=== PATIENT | female | born 1945 | race Caucasian/White ===

== ENCOUNTER 2023-06-09 11:03 | Emergency (ER) | payer BC, MEDICARE, SELFPAY ==
--- NOTE | ~2023-06-09 | XR_ITS ---
EXAMINATION: XR tibia fibula RT 2V INDICATION: Right leg pain TECHNIQUE: Two views of the right tibia and fibula are obtained on four radiographs COMPARISON: None available FINDINGS: Bone alignment is normal. There is no fracture. Calcified atherosclerosis is noted. There i s soft tissue swelling of the lower limb. A plantar calcaneal enthesophyte is noted. IMPRESSION: 1. No acute osseous abnormality. Reviewed, dictated and finalized at location F. COORDINATION MANAGER
[2023-06-09 11:00] VITALS: PULSE 60; RESP 20; TEMP 36.8; O2SAT 98
--- NOTE | 2023-06-09 11:07 | ECG_ITS ---
Measurements Intervals [place] Rate: 60 P: 263 AK: 244 QRS: 59 QRSD: 145 T: 27 QT: 485 QTc: 485 Interpretive Statements ELECTRONIC ATRIAL PACEMAKER LEFT BUNDLE BRANCH BLOCK BASELINE ARTIFACT- I, III, AVL ABNORMAL ECG NO PREVIOUS ECG AVAILABLE FOR COMPARISON Electronically Signed On 06-09-2023 15:38:34 FAMILY SUPPORT WORKER by Sandeep Arora D.O.
[2023-06-09 11:13] VITALS: PULSE 60; RESP 17; O2SAT 99
[2023-06-09 11:15] VITALS: BP 136/70; PULSE 60; RESP 14; O2SAT 99
[2023-06-09 11:16] VITALS: PULSE 60; RESP 13; O2SAT 99
[2023-06-09 12:11] LABS: Basophils Absolute Auto 0.1 K/mm3 (0.0-0.1); Basophils Percent Auto 0.4 % (0.2-1.2); Eosinophils Absolute Auto 0.1 K/mm3 (0-0.3); Eosinophils Percent Auto 0.6 % (0-4.4); Hematocrit 34.8 % (37.0-47.0); Hemoglobin 11.2 g/dL (12.0-15.0); Immature Granulocyte Absolute 0.09 K/mm3 (0.00-0.031); Immature Granulocyte Percent A 0.6 % (0-0.5); Lymphocytes Absolute Auto 1.82 K/mm3 (0.9-3.2); Lymphocytes Percent Auto 11.3 % (18.3-44.2); Mean Corpuscular HGB Conc 32.2 g/dl (32-36); Mean Corpuscular Hemoglobin 32.4 pg (26-34); Mean Corpuscular Volume 100.6 fl (80-100); Mean Platelet Volume 10.1 fl (7.4-10.4); Monocytes Percent Auto 12.2 % (2.6-8.5); Neutrophils Absolute Auto 12.1 K/mm3 (1.3-6.7); Neutrophils Percent Auto 74.9 % (45.5-73.1); Platelet Count Result 252 k/mm3 (150-375); Red Blood Count 3.46 M/mm3 (4.2-5.4); Red Cell Distribution Width 13.5 % (11.5-14.5); White Blood Count 16.1 K/mm3 (4.5-10.0)
[2023-06-09 12:20] LABS: Alanine Aminotransferase 18 U/L (6-35); Alkaline Phosphatase 71 U/L (38-126); Anion Gap 8 mmol/L (8-16); Aspartate Amino Transferase 31 U/L (14-36); Bilirubin,Total 0.8 mg/dL (0.2-1.3); Blood Urea Nitrogen 30 mg/dL (7-17); Calcium 9.9 mg/dL (8.4-10.2); Carbon Dioxide 28 mmol/L (22-30); Chloride 93 mmol/L (98-107); Estimated CRCL calculation 31 ml/min; Estimated Glomerular Filt Rate 40; Glucose 105 mg/dL (65-110); Potassium 4.4 mmol/L (3.4-5.0); Sodium 129 mmol/L (137-145)
[2023-06-09 12:21] LABS: Prothrombin Time 33.8 Seconds (11.1-14.7)
[2023-06-09 12:22] LABS: Partial Thromboplastin Time 71.7 SECONDS (22.3-36.8)
--- NOTE | 2023-06-09 12:59 | ED.FALL ---
HPI - Fall General Chief Complaint: Fall Stated Complaint: fall Time Seen by Provider: 06/09/23 11:04 History of Present Illness HPI Narrative: 77-year-old female presented to the emergency department for evaluation right leg pain. Patient state she was walking at night and her right foot fell into a hole. the patient did injure her right lower leg and did develop a hematoma at her right hip. Patient does take Coumadin Related Data Allergies Allergy/AdvReac Type Severity Reaction Status Date / Time Contrast Media Allergy Unknown Unknown Uncoded 06/09/23 11:06 Review of Systems Review of Systems: All systems reviewed & are unremarkable except as noted in HPI and below Exam Narrative: APPEARANCE: Well appearing, no pain, no distress, well-nourished. HEAD: normocephalic, atraumatic. EYES: PERRLA/EOMI, conjunctivae clear. NOSE: Normal no drainage EARS:TMS clear with good light reflex. THROAT: Pharynx clear, no exudate. NECK: Supple. No adenopathy, no masses. RESPIRATORY: Airway patent, respirations nonlabored. Clear to auscultation bilaterally, no rales, rhonchi, wheezing. CARDIOVASCULAR: Regular rate and rhythm without murmurs rubs or gallops. ABDOMINAL: Soft, nontender, nondistended, normal bowel sounds MUSCULOSKELETAL: right thigh hematoma. Ecchymosis to right lower leg and healing laceration. NEURO: Alert. Cranial nerves II through XII intact. grossly intact SKIN: laceration to right perez Course Course Emergency Course: 77-year-old female presents emerged department for evaluation a hematoma to her right hip and to injury to her right tib-fib. The laceration was cold and was allowed to heal by secondary intention. Patient Steri-Strips were replaced. Patient was started on antibiotics for possible underlying cellulitis. X-rays were negative for acute fracture dislocation. Patient and family were updated on results of workup. Patient was comfortable with plan for discharge and close follow-up. Patient was educated on reasons to return to the emergency department. All questions and concerns were addressed. Vital Signs Vital signs: Vital Signs Temperature 98.3 F 06/09/23 11:00 Pulse Rate 60 06/09/23 11:00 Respiratory Rate 20 06/09/23 11:00 Pulse Oximetry 98 06/09/23 11:00 Oxygen Delivery Room Air 06/09/23 11:00 Temperature 98.3 F 11/24/23 11:00 Pulse Rate 69 06/09/23 14:11 Respiratory Rate 20 06/09/23 14:11 Blood Pressure 140/69 06/09/23 14:11 Pulse Oximetry 99 06/09/23 14:11 Oxygen Delivery Room Air 06/09/23 11:00 - Fall Lab Data 06/09/23 12:04 06/09/23 12:04 Labs: Lab Results 06/09/23 Range/Units 12:04 WBC 16.1 H (4.5-10.0) K/mm3 RBC 3.46 L (4.2-5.4) M/mm3 Hgb 11.2 L (12.0-15.0) g/dL Hct 34.8 L (37.0-47.0) % MCV 100.6 H (80-100) fl MCH 32.4 (26-34) pg MCHC 32.2 (32-36) g/dl RDW 13.5 (11.5-14.5) % Plt Count 252 (150-375) k/mm3 MPV 10.1 (7.4-10.4) fl Immature Gran % (Auto) 0.6 H (0-0.5) % Neut % (Auto) 74.9 H (45.5-73.1) % Lymph % (Auto) 11.3 L (18.3-44.2) % Hendry % (Auto) 12.2 H (2.6-8.5) % Eos % (Auto) 0.6 (0-4.4) % Baso % (Auto) 0.4 (0.2-1.2) % Lymph # (Auto) 1.82 (0.9-3.2) K/mm3 Hendry # (Auto) 2.0 H (0.1-0.6) K/mm3 Eos # (Auto) 0.1 (0-0.3) K/mm3 Baso # (Auto) 0.1 (0.0-0.1) K/mm3 Abs Immat Gran (auto) 0.09 H (0.00-0.031) K/mm3 Absolute Neuts (auto) 12.1 H (1.3-6.7) K/mm3 Absolute Nucleated RBC 0.0 (0.0-0.012) K/mm3 Nucleated RBC % 0.0 (0.0-0.2) % PT 33.8 H (11.1-14.7) Seconds INR 3.0 APTT 71.7 H (22.3-36.8) SECONDS Sodium 129 L (137-145) mmol/L Potassium 4.4 (3.4-5.0) mmol/L Chloride 93 L (98-107) mmol/L Carbon Dioxide 28 (22-30) mmol/L Anion Gap 8 (8-16) mmol/L BUN 30 H (7-17) mg/dL Creatinine 1.30 H (0.7-1.0) mg/dL Estim Creat Clear Calc 31 ml/min Estimated GFR 40 L (59 - ) Glucose 105 (65-110)
[2023-06-09] MEDS: CEPHALEXIN 500 MG CAPSULE PO (13:53)
[2023-06-09 14:11] VITALS: BP 140/69; PULSE 69; RESP 20; O2SAT 99
== END 2023-06-09 14:12 | disposition home or self-care (01) ==
PROVIDERS: Emergency Provider Emergency Medicine; PCP Internal Medicine
DX: L03.115 Cellulitis of right lower limb (principal); S81.811A Laceration without foreign body, right lower leg, initial encounter; S70.01XA Contusion of right hip, initial encounter; Z79.01 Long term (current) use of anticoagulants; I44.7 Left bundle-branch block, unspecified; X50.9XXA Other and unspecified overexertion or strenuous movements or postures, initial encounter
CPT/HCPCS: 36415; 73590; 80053; 85025; 85610; 85730; 93005; 99283; A9270

== ENCOUNTER → 2023-06-28 12:55 | Outpatient (CLI) | payer BC, MEDICARE, SELFPAY ==
--- NOTE | ~2023-06-28 | US_ITS ---
EXAMINATION: US soft tissue LE RT DATE: 06/28/2023 13:18 INDICATION: Right lower limb pain and erythema and swelling and hematoma. TECHNIQUE: Multiple grayscale and Doppler ultrasound images of the right lower limb were obtained. COMPARISON: Right tibia and fibula radiographs 06/09/2023 FINDINGS: There is a hematoma in lateral right lower leg measuring 12.1 x 1.6 x 3.9 cm. IMPRESSION: 1. Hematoma in lateral right lower leg. Reviewed, dictated and finalized at location A. D CUTTER
== END ==
PROVIDERS: PCP Internal Medicine
DX: S80.11XD Contusion of right lower leg, subsequent encounter (principal)
CPT/HCPCS: 76882

== ENCOUNTER 2024-10-04 19:03 | Emergency (ER) | payer MEDICARE, SELFPAY ==
--- NOTE | ~2024-10-04 | XR_ITS ---
CHEST RADIOGRAPH CLINICAL HISTORY: cough . COMPARISON: 04/27/2016 TECHNIQUE: Single portable view of the chest. FINDINGS Sternal wires and mediastinal clips are identified, the wires are midline and primarily intact. The left mid lung is partially obscured due to pacemaker generator. Wires project over the right atrium and right ventricle. Ring projects over the mitral position The lungs are clear. IMPRESSION: No focal infiltrate or effusion. Reviewed, dictated and finalized at location A.
--- OUTSIDE RECORDS SUMMARY | 2024-10-04 19:06 | XMS_ITS | Clinical Summary ---
Author Organization [place] [id number] [facility] Address [address] [place] [address] Care Team Providers Care Head Stock Transfer Clerk Name Role Phone Deandre Tracey MD Primary Care Provider [phone] Allergies Active Allergy Reactions Criticality Noted Date Comments Iodinated Contrast Media Rash Medium 02/14/2023 Medications ezetimibe (ZETIA) 10 mg tablet Take 1 tablet (10 mg total) by mouth daily 09/12/19 21 Active furosemide (LASIX) 40 mg tablet Take 0.5 tablets (20 mg total) by mouth daily 08/24/19 21 Active rosuvastatin (CRESTOR) 10 mg tablet Take 1 tablet (10 mg total) by mouth 1 every other day 07/15/20 20 Active sotaloL (BETAPACE) 80 mg tablet Take 1 tablet (80 mg total) by mouth 2 (two) times a day 08/24/19 21 Active dilTIAZem CD 240 mg 24 hr capsule Take 1 capsule (240 mg total) by mouth daily 10/16/19 21 Active warfarin (COUMADIN) 3 mg tablet Take 1 tablet (3 mg total) by mouth 10/08/19 21 Active magnesium oxide (MAG-OX) 400 mg (241.3 mg elemental magnesium) tabletIndicati ons:hypomagnes emia Take 1 tablet (400 mg total) by mouth daily Active spironolactone (ALDACTONE) 25 mg tablet Take 0.5 tablets (12.5 mg total) by mouth daily 06/15/20 22 Active aspirin 81 mg enteric coated tablet Take 1 tablet (81 mg total) by mouth daily Active Jardiance 10 mg tablet Take 1 tablet (10 mg total) by mouth daily 01/21/20 23 Active sacubitriL-amelia sartan (ENTRESTO) 49-51 mg tabletIndicati ons:chronic heart failure Take 1 tablet by mouth 2 (two) times a day Active warfarin (COUMADIN) 2 mg tablet TAKE 1 AND 1/2 TABLETS BY MOUTH DAILY DIRECTED BY INR 03/11/20 23 Active traMADoL (ULTRAM) 50 mg tablet Take 1 tablet (50 mg total) by mouth every morning 15 tablet 06/16/20 23 Active Additional Information Patient not taking.Reported on 01/08/2024 mupirocin (BACTROBAN) 2 % ointmentIndica tions:Minor Bacterial Skin Infections Apply topically daily 22 g 11/03/19 24 Active triamcinolone (KENALOG) 0.1 % ointment Apply topically daily Apply topically to reddened area around wound on your right lower leg with daily dressing changes 30 g 1 11/16/19 24 Active acetaminophen (TYLENOL) 325 mg tablet Take 1 tablet (325 mg total) by mouth every 6 (six) hours as needed for pain Active estradioL (ESTRACE) 1 mg tablet TAKE 1 TABLET(1 MG) BY MOUTH DAILY 90 tablet 2 01/28/20 24 Active ferrous sulfate 325 mg (65 mg of elemental iron) tabletIndicati ons:Iron Deficiency Anemia Take 1 tablet (325 mg total) by mouth daily with breakfast 30 tablet 11 04/23/20 24 025 Active Additional Information Patient not taking.Reported on 07/01/2024 sodium, potassium & mag sulfates (SUPREP BOWEL KIT) 17.5-3.13-1.6 gram recon soln FOLLOW PACKAGE DIRECTIONS 06/19/20 24 Active gabapentin (NEURONTIN) 100 mg capsule TAKE 1 CAPSULE(100 MG) BY MOUTH TWICE DAILY 180 capsule 2 09/05/19 25 Active zolpidem (AMBIEN) 5 mg tablet TAKE 1 TABLET(5 MG) BY MOUTH EVERY NIGHT 30 tablet 1 09/06/[address] (PROTONIX) 40 mg EC tablet Take 1 tablet (40 mg total) by mouth daily before breakfast 08/16/19 25 Active azithromycin (ZITHROMAX) 250 mg tablet Take 2 tabs (500 mg) by mouth today, than 1 tab (250 mg) daily for 4 days. 6 tablet 10/03/19 25 025 Active doxycycline (VIBRAMYCIN) 100 mg capsule Take 1 tablet/capsule (100 mg total) by mouth 2 (two) times a day for 10 days 20 tablet/caps ule 10/03/19 25 025 Active gabapentin (NEURONTIN) 100 mg capsule Take 1 capsule (100 mg total) by mouth 2 (two) times a day 180 capsule 1 03/01/20 24 025 Discontinued zolpidem (AMBIEN) 5 mg tablet TAKE 1 TABLET(5 MG) BY MOUTH EVERY NIGHT 30 tablet 1 07/08/20 24 025 Discontinued Active Problems Problem Noted Date Diagnosed Date Iron deficiency anemia 04/23/2024 Open leg wound, right, subsequent encounter 01/2024 Assessment & Plan (09/23/2024 12:47 PM CDT): This is doing better and stable I have advised her to wear her sleeve during the day especially while she is up and moving around. Chronic left-sided thoracic back pain 02/14/2023 Assessment & Plan (09/23/2024 12:48 PM CDT): Will check CT of T-spine. Assessment & Plan (02/14/2023 9:53 AM CDT): Will obtain Xray Continue lidocaine patches Trial gabapentin 100mg BID Pacemaker 10/16/2020 Menopause 10/16/2020 Essential hypertension 10/16/2020 Assessment & Plan (11/21/2023 12:42 PM CDT): BP at target continue medication for target directed therapy Mixed hyperlipidemia 10/16/2020 Assessment & Plan (11/21/2023 12:42 PM CDT): Doing well. Primary insomnia 10/16/2020 Encounter for screening mamm ogram for malignant neoplasm of breast 09/24/2020 Assessment & Plan (09/24/2020 2:59 PM AUTOMATIC CENTRIFUGAL STATION OPERATOR): Lengthy discussion today regarding HRT and importance of regular screening (last 2019) Atrial fibrillation 04/02/2013 Assessment & Plan (11/21/2023 12:42 PM CDT): Stable at this time on anticoagulation Assessment & Plan (09/24/2020 2:58 PM AUTOMATIC CENTRIFUGAL STATION OPERATOR): Unfortunately no ECG machine available today to determine rhythm, but she is irregularly irregular, edema, no CP or SOB Will do 48 hour holter Advised to contact cardiology and make them aware of irregular rhythm and dizziness S/S to seek ER care for reviewed today Labs Mitral valve disease 09/19/2008 Cardiomyopathy 09/19/2008 Assessment & Plan (11/21/2023 12:42 PM CDT): Stable followed by Cardiology recent electrolytes done by Cardiology apparently Resolved Problems Problem Noted Date Diagnosed Date Resolved Date Herpes zoster without complication 07/12/2022 02/14/2023 Assessment & Plan (07/12/2022 2:37 PM AUTOMATIC CENTRIFUGAL STATION OPERATOR): Complete Valtrex TID OTC Lidocaine patches, on for 12 hours/off for hours Encounters Date Type Department Care Team Description 10/02/2024 Orders Only [facility] [address] [place] [address] Deandre Tracey MD 10/02/2024 Telephone [facility] [address] [place] [address] Deandre Tracey MD cough 09/23/2024 12:00 PM CDT Office Visit [facility] [address] [facility] [address] [place] [address] Deandre Tracey MD Open leg wound, right, subsequent encounter (Primary Dx); Chronic left-sided thoracic back pain 08/17/2024 Orders Only [facility] [address] [place] [address] Deandre Tracey MD 07/11/2024 [facility] [address] [facility] [address] [place] [address] Merlene Kohli MA from Last 3 Months Immunizations Immunization Administration Dates Next Due Tdap 08/11/2014 Surgical History Surgery Date Site/Laterality Comments INSERT / REPLACE / REMOVE PACEMAKER HYSTERECTOMY MITRAL VALVE REPLACEMENT Medical History Medical History Date Comments Atrial fibrillation (HCC) Sleep difficulties Hyperlipidemia Family History Medical History Relation Name Comments Cancer Father Cancer Mother Relation Name Status Comments Father Mother Social History Tobacco Use Types Packs/Day Years Used Date Smoking Tobacco: Never Tobacco Cessation:Counseling Given: Not Answered Hunger Vital Sign Answer Date Recorded Within the past 12 months, y ou worried that your food would run out before you got the money to buy more. Never true 10/31/19 24 Within the past 12 months, t he food you bought just didn't last and you didn't have money to get more. Never true 10/31/2023 Comments Unknown Sex and Gender Information Value Date Recorded Sex Assigned at Not on file Legal Sex Female 12:07 PM AUTOMATIC CENTRIFUGAL STATION OPERATOR Gender Identity Not on file Sexual Orientation Not on file Obstetrics History Last Filed Vital Signs Vital Sign Reading Time Taken Comments Blood Pressure 94/60 09/23/2024 12:04 PM CDT Pulse 60 09/23/2024 12:04 PM CDT Temperature 36.4 C (97.6 F) 01/08/2024 8:52 AM CDT Respiratory Rate 16 10/31/2023 1:09 PM CDT Oxygen Saturation 97% 03/01/2024 10:21 AM CDT Inhaled Oxygen Concentration - - Weight 69.4 kg (153 lb) 09/23/2024 12:04 PM CDT Height 157.5 cm (5' 2 ) 09/23/2024 12:04 PM CDT Body Mass Index 27.98 09/23/2024 12:04 PM CDT Plan of Treatment Health Maintenance Due Date Last Done Comments Depression Screening 1945 Fall Risk Assessment 1945 Hepatitis C Screening 1945 Hepatitis B Screening 09/26/1963 Well Visit 65+ 2010 Influenza Vaccine (#1) 2024 DTaP/Tdap/Td Vaccine (2 - Td or Tdap) 08/11/2024 08/11/2014 Osteoporosis Screening-Bone Density Scan 07/01/2025 Postponed from 09/25 (Patient declined, but will receive in the future) Pneumococcal vaccine 65+ (1 of 2 - PCV) 07/01/2025 Postponed from 09/25 (Patient declined, but will receive in the future) Zoster Vaccine (1 of 2) 07/01/2025 Post poned from 09/26/1995 (Patient declined, but will receive in the future) Breast Cancer Screening-Mammogram Discontinued 10/23/2018 Procedures Procedure Name Priority Date/Time Associated Diagnosis Comments GI - RESULT 08/17/2024 9:37 AM AUTOMATIC CENTRIFUGAL STATION OPERATOR SCREENING MAMMOGRAM BILATERAL W CLAUDE Schedule Routine, Read Routine (OP Routine) 10/23/2018 7:41 AM CDT Encounter for screening mammogram for malignant neoplasm of breast from Last 3 Months or Most Recently Relevant to Health Maintenance Results * GI - RESULT (08/17/2024 9:37 AM AUTOMATIC CENTRIFUGAL STATION OPERATOR) Anatomical Region Laterality Modality Other us Deandre Tracey MD Final Result * Screening Mammogram Bilateral W Claude (10/23/2018 7:41 AM CDT) Anatomical Region Laterality Modality Breast Bilateral Mammography Narrative 10/25/2018 8:01 AM CDT Mammogram Technique: Bilateral Digital Breast Tomosynthesis, Bilateral C-view 2D Screening mammogram. Views obtained: bilateral craniocaudal and bilateral mediolateral oblique. Computer Aided Detection was performed. Mammogram Findings: The present examination has been compared to prior imaging studies performed [facility] 10/13/2008, and at [facility] on 09/18/2008. The breasts are heterogeneously dense, which may obscure small masses. There is a new focal asymmetry measuring 10 millimeters in the anterior subareolar area of the left breast located 2 centimeters from the nipple. There is no suspicious abnormality in the right breast. Impression: New focal asymmetry in the left breast requires additional evaluation. Additional views are recommended. OVERALL FINAL ASSESSMENT: BI-RADS CATEGORY 0: Incomplete: Need additional imaging evaluation. Procedure Note Marva Morgan MD - 10/25/2018 Mammogram Technique: Bilateral Digital Breast Tomosynthesis, Bilateral C-view 2D Screening mammogram. Views obtained: bilateral craniocaudal and bilateral mediolateral oblique. Computer Aided Detection was performed. Mammogram Findings: The present examination has been compared to prior imaging studies performed at [facility] on 10/13/2008, and at [facility] on 09/18/2008. The breasts are heterogeneously dense, which may obscure small masses. There is a new focal asymmetry measuring 10 millimeters in the anterior subareolar area of the left breast located 2 centimeters from thenipple. There is no suspicious abnormality in the right breast. Impression: New focal asymmetry in the left breast requires additional evaluation. Additional views are recommended. OVERALL FINAL ASSESSMENT: BI-RADS CATEGORY 0: Incomplete: Need additional imaging evaluation. Deandre Tracey MD IMG MAMMO PROCEDURES Final Re sult from Last 3 Months or Most Recently Relevant to Health Maintenance Insurance [facility] Member Subscriber Plan / Payer (Ef fective 2013-Present) Name:Krista Marino Relation to Subscriber:Self Name:Krista Marino Payer ID:[id number] (NAIC) Type:[facility] Address: [address] [place] [id number] MEDICARE BLUE ACCESS OOS [facility] MEDICARE ADVANTAGE [facility] MEDICARE ADVANTAGE [facility] MEDICARE [facility] Address: [address] [address] Care Teams Head Stock Transfer Clerk Relationship Specialty Start Date End Date Deandre Tracey MD [address] [address] PCP - General 10/23/18
--- OUTSIDE RECORDS SUMMARY | 2024-10-04 19:06 | XMS_ITS | Encounter Summary ---
Author Organization [facility] Address [address] [place] [address] Care Team Providers Care Sas Administrator Name Role Phone Deandre Tracey MD Primary Care Provider [phone] Encounter Details Date Type Department Care Team (Late st Contact Info) Description 10/02/2024 Orders Only [facility] [address] [facility] [address] [place] [address] Deandre Tracey MD [address] [facility] [address] [place], [place] [id number] Social History Tobacco Use Types Packs/Day Years Used Date Smoking Tobacco: Never Hunger Vital Sign Answer Date Recorded Within [...] on file Legal Sex Female 12:07 PM ALUM MIXER Gender Identity Not on file Sexual Orientation Not on file documented as of this encounter Plan of Treatment Not on file documented as of this encounter Visit Diagnoses Not on filedocumented in this encounter Care Teams Sas Administrator Relationship Specialty Start Date End Date Deandre Tracey MD [address] [facility] [address] [place], [place] [id number] PCP - General 10/23/18 documented as of this encounter
[2024-10-04 19:07] VITALS: BP 151/75; PULSE 72; RESP 18; TEMP 36; O2SAT 96
--- OUTSIDE RECORDS SUMMARY | 2024-10-04 19:07 | XMS_ITS | Referral Summary ---
Author Organization [place] [id number] [facility] Address [facility] [place] [address] Care Team Providers Care Black Top Raker Name Role Phone Deandre Tracey MD Primary Care Provider [phone] Encounters Date Type Department Care Team Description 10/02/2024 Orders Only [facility] [address] [address] Deandre Tracey MD 10/02/2024 Telephone [facility] [address] [address] Deandre Tracey MD cough 09/23/2024 12:00 PM CDT Office Visit [facility] [address] [address] Deandre Tracey MD Open leg wound, right, subsequent encounter (Primary Dx); Chronic left-sided thoracic back pain 08/17/2024 Orders Only [facility] [address] [place] [address] Deandre Tracey MD 07/11/2024 Telephone [facility] [address] [address] Merlene Kohli MA from Last 3 Months Allergies Active Allergy Reactions Criticality Noted Date [...] 09/24/2020 Assessment & Plan (09/24/2020 2:59 PM SLASHER): Lengthy discussion today regarding HRT and importance of regular screening (last 2018) Atrial fibrillation 04/02/2013 Assessment & Plan (11/21/2023 12:42 PM CDT): Stable at this time on anticoagulation Assessment & Plan (09/24/2020 2:58 PM SLASHER): Unfortunately no ECG machine available today to [...] 02/14/2023 Assessment & Plan (07/12/2022 2:37 PM SLASHER): Complete Valtrex TID OTC Lidocaine patches, on for 12 hours/off for hours Immunizations Immunization Administration Dates Next Due Tdap 08/11/2014 Social History Tobacco Use Types Packs/Day Years [...] on file Legal Sex Female 12:07 PM SLASHER Gender Identity Not on file Sexual Orientation Not on file Last Filed Vital Signs Vital Sign Reading [...] 09/23/2024 12:04 PM CDT Plan of Treatment Not on file Procedures Procedure Name Priority Date/Time Associated Diagnosis Comments GI - RESULT 08/17/2024 9:37 AM SLASHER SCREENING MAMMOGRAM BILATERAL W CLAUDE Schedule Routine, Read Routine (OP Routine) 10/23/2018 7:41 AM CDT Encounter for screening mammogram for malignant neoplasm of breast from Last 3 Months or Most Recently Relevant to Health Maintenance Results * GI - RESULT (08/17/2024 9:37 AM SLASHER) Anatomical Region Laterality Modality Other us Deandre [...] compared to prior imaging studies performed at [facility] on 10/13/2008, and at [facility] on 09/18/2008. The breasts are heterogeneously dense, [...] compared to prior imaging studies performed at [facility] on 10/13/2008, and at [facility] on 09/18/2008. The breasts are heterogeneously dense, [...] Most Recently Relevant to Health Maintenance Insurance [facility] ACCESS MEDICARE [place]OS * Guarantor: Krista Marino Account Type Relation to Patient Date of Phone Billing Address Personal/Family Self 1945 [address] [place] [address] [facility] MEDICARE [facility] Address: [address] [place] [phone] [facility] MEDICARE [facility] Address: [address] [place] [phone] [facility] MEDICARE [facility] Address: [address] [place] [phone] Care Teams Black Top Raker Relationship Specialty Start Date End Date Deandre Tracey MD [address] [facility] [address] [place] [address] PCP - General 10/23/18
--- OUTSIDE RECORDS SUMMARY | 2024-10-04 19:07 | XMS_ITS | Encounter Summary ---
Author Organization [facility] Address [address] [place] [address] Care Team Providers Care Mainspring Former Arbor End Name Role Phone Deandre Tracey MD Primary Care Provider [phone] Encounter Details Date Type Department Care Team (Late st Contact Info) Description 09/28/2020 [facility] [address] [facility] [address] [place] [address] Deandre Tracey MD [address] [facility] [address] [place] [address] Social History Tobacco Use Types Packs/Day Years Used Date Smoking Tobacco: Never Comments Unknown Sex and Gender Information Value Date Recorded Sex Assigned at Not on file Legal Sex Female 12:07 PM CATERING ATTENDANT Gender Identity Not on file Sexual Orientation Not on file documented as of this encounter Plan of Treatment Not on file documented as of this encounter Visit Diagnoses Not on filedocumented in this encounter Care Teams Mainspring Former Arbor End Relationship Specialty Start Date End Date Deandre Tracey MD [address] [facility] [address] [place], [place] [id number] PCP - General 10/23/18 documented as of this encounter
--- NOTE | 2024-10-04 19:39 | ECG_ITS ---
Test Date: 2024-10-04 20:15:52 Measurements Intervals [place] Rate: 74 P: 92 [place]: 195 QRS: 100 QRSD: 132 T: 26 QT: 443 QTc: 493 Interpretive Statements SINUS RHYTHM WITH SINUS ARRHYTHMIA INTRAVENTRICULAR CONDUCTION DELAY [130+ ms QRS DURATION] POSSIBLE RIGHT VENTRICULAR HYPERTROPHY [SOME/ALL OF: PROMINENT R IN V1, LATE TRANSITION, RAD, MARISOL, SSS] ANTEROSEPTAL MYOCARDIAL INFARCTION , PROBABLY OLD [40+ ms Q WAVE IN V1-V4] No previous ECG available for comparison Electronically Signed On 10-05-2024 17:31:01 CDT by Pawan Andrade M.D.
--- OUTSIDE RECORDS SUMMARY | 2024-10-04 19:40 | XMS_ITS | Clinical Summary ---
Author Organization [place] [id number] [facility] Address [address] [place] [address] Care Team Providers Care Manager Asset Name Role Phone Deandre Tracey MD Primary Care Provider [phone] Allergies Active Allergy Reactions Criticality Noted Date [...] 09/24/2020 Assessment & Plan (09/24/2020 2:59 PM NETWORKER): Lengthy discussion today regarding HRT and importance of regular screening (last 2019) Atrial fibrillation 04/02/2013 Assessment & Plan (11/21/2023 12:42 PM CDT): Stable at this time on anticoagulation Assessment & Plan (09/24/2020 2:58 PM NETWORKER): Unfortunately no ECG machine available today to [...] 02/14/2023 Assessment & Plan (07/12/2022 2:37 PM NETWORKER): Complete Valtrex TID OTC Lidocaine patches, on for 12 hours/off for hours Encounters Date Type Department Care Team Description 10/02/2024 Orders Only [facility] [address] [place] [address] Deandre Tracey MD 10/02/2024 Telephone [facility] [address] [place] [address] Deandre Tracey MD cough 09/23/2024 12:00 PM CDT Office Visit [facility] [address] [facility] [address] [place] [address] Deandre Tracey MD Open leg wound, right, subsequent encounter (Primary Dx); Chronic left-sided thoracic back pain 08/17/2024 Orders Only [facility] [address] [place] [address] Deandre Tracey MD 07/11/2024 [facility] [address] [facility] [address] [place] [address] Merlene Kohli MA from Last [...] on file 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 Gender Identity Not on file Sexual Orientation [...] Comments GI - RESULT 08/17/2024 9:37 AM NETWORKER SCREENING MAMMOGRAM BILATERAL W CLAUDE Schedule Routine, Read Routine (OP Routine) 10/23/2018 7:41 AM CDT Encounter for screening mammogram for malignant neoplasm of breast from Last 3 Months or Most Recently Relevant to Health Maintenance Results * GI - RESULT (08/17/2024 9:37 AM NETWORKER) Anatomical Region Laterality Modality Other us Deandre [...] compared to prior imaging studies performed at [facility] on 10/13/2008, and at [facility] on 09/18/2008. The breasts are heterogeneously dense, [...] Incomplete: Need additional imaging evaluation. Procedure Note aMrva Morgan MD - 10/25/2018 Mammogram Technique: Bilateral Digital Breast Tomosynthesis, Bilateral C-view 2D Screening mammogram. Views obtained: bilateral craniocaudal and bilateral mediolateral oblique. Computer Aided Detection was performed. Mammogram Findings: The present examination has been compared to prior imaging studies performed at [facility] on 10/13/2008, and at [facility] on 09/18/2008. The breasts are heterogeneously dense, [...] Most Recently Relevant to Health Maintenance Insurance [facility] Member Subscriber Plan / Payer (Ef fective 2013-Present) Name:Krista Marino Relation to Subscriber:Self Name:Krista Marino Payer ID:[id number] (NAIC) Type:[facility] Address: [address] [place] [id number] MEDICARE BLUE ACCESS [facility] MEDICARE ADVANTAGE [facility] MEDICARE ADVANTAGE [facility] MEDICARE ADVANTAGE Care Teams Manager Asset Relationship Specialty Start Date End Date Deandre Tracey MD [address] [address] PCP - General 10/23/18
--- OUTSIDE RECORDS SUMMARY | 2024-10-04 19:41 | XMS_ITS | Encounter Summary ---
Author Organization [facility] Address [address] [place] [address] Care Team Providers Care Jack Spooler Tender Name Role Phone Deandre Tracey MD Primary Care Provider [phone] Encounter Details Date Type Department Care Team (Late st Contact Info) Description 09/28/2020 [facility] [address] [facility] [address] [place] [address] Deandre Tracey MD [address] [facility] [address] [place] [address] Social History Tobacco Use Types Packs/Day Years Used Date Smoking Tobacco: Never Comments Unknown Sex and Gender Information Value Date Recorded Sex Assigned at Not on file 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
--- OUTSIDE RECORDS SUMMARY | 2024-10-04 19:41 | XMS_ITS | Encounter Summary ---
Author Organization [facility] Address [address] [place] [address] Care Team Providers Care Elementary Educator Name Role Phone Deandre Tracey MD Primary Care Provider [phone] Encounter Details Date Type Department Care Team (Late st Contact Info) Description 10/02/2024 Orders Only [facility] [address] [facility] [address] [facility] [place] [phone] Deandre Tracey MD [address] [facility] [address] [place], [place] [id number] Social History Tobacco Use Types Packs/Day Years [...] on file 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
--- OUTSIDE RECORDS SUMMARY | 2024-10-04 19:41 | XMS_ITS | Referral Summary ---
Author Organization [place] [id number] [facility] Address [facility] [place] [address] Care Team Providers Care Customer Service Sales Associate Name Role Phone Deandre Tracey MD Primary Care Provider [phone] Encounters Date Type Department Care Team Description 10/02/2024 Orders Only [facility] [address] [address] Deandre Tracey MD 10/02/2024 Telephone [facility] [address] [address] Deandre Tracey MD cough 09/23/2024 12:00 PM CDT Office Visit [facility] [address] [address] Deandre Tracey MD Open leg wound, right, subsequent encounter (Primary Dx); Chronic left-sided thoracic back pain 08/17/2024 Orders Only [facility] [address] [place] [address] Deandre Tracey MD 07/11/2024 Telephone [facility] [address] [address] Merlene Kohli MA from Last 3 Months [...] 09/24/2020 Assessment & Plan (09/24/2020 2:59 PM TRACTOR TRAILER MOVING VAN DRIVER): Lengthy discussion today regarding HRT and importance of regular screening (last 2018) Atrial fibrillation 04/02/2013 Assessment & Plan (11/21/2023 12:42 PM CDT): Stable at this time on anticoagulation Assessment & Plan (09/24/2020 2:58 PM TRACTOR TRAILER MOVING VAN DRIVER): Unfortunately no ECG machine available today to [...] 02/14/2023 Assessment & Plan (07/12/2022 2:37 PM TRACTOR TRAILER MOVING VAN DRIVER): Complete Valtrex TID OTC Lidocaine patches, on [...] on file Legal Sex Female 12:07 PM TRACTOR TRAILER MOVING VAN DRIVER Gender Identity Not on file Sexual Orientation [...] Comments GI - RESULT 08/17/2024 9:37 AM TRACTOR TRAILER MOVING VAN DRIVER SCREENING MAMMOGRAM BILATERAL W CLAUDE Schedule Routine, Read Routine (OP Routine) 10/23/2018 7:41 AM CDT Encounter for screening mammogram for malignant neoplasm of breast from Last 3 Months or Most Recently Relevant to Health Maintenance Results * GI - RESULT (08/17/2024 9:37 AM TRACTOR TRAILER MOVING VAN DRIVER) Anatomical Region Laterality Modality Other us Deandre [...] compared to prior imaging studies performed at [facility] on 10/13/2008, and at [facility] on 09/18/2008. The breasts are heterogeneously dense, [...] compared to prior imaging studies performed at [facility] on 10/13/2008, and at [facility] on 09/18/2008. The breasts are heterogeneously dense, [...] Most Recently Relevant to Health Maintenance Insurance [facility] ACCESS MEDICARE [place] ACCESS [facility] MEDICARE AD[facility]ANTAGE [facility] Address: [address] [place] [phone] [facility] MEDICARE ADVANTAGE [facility] Address: [address] [place] [phone] [facility] MEDICARE ADVANTAGE [facility] Address: [address] [place] [phone] Care Teams Customer Service Sales Associate Relationship Specialty Start Date End Date Deandre Tracey MD [address] [facility] [address] [place] [address] PCP - General 10/23/18
[2024-10-04] MEDS: IPRATROPIUM 0.5 MG/ALBUTEROL SULFATE 2.5 MG AMPUL.NEB 3 ML INHALATION (19:56)
[2024-10-04 20:01] VITALS: PULSE 108; RESP 26
[2024-10-04 20:11] LABS: Basophils Percent Auto 0.4 % (0.2-1.2); Eosinophils Percent Auto 0.4 % (0-4.4); Hematocrit 32.5 % (37.0-47.0); Hemoglobin 10.3 g/dL (12.0-15.0); Immature Granulocyte Absolute 0.07 K/mm3 (0.00-0.031); Immature Granulocyte Percent A 0.6 % (0-0.5); Lymphocytes Absolute Auto 1.58 K/mm3 (0.9-3.2); Lymphocytes Percent Auto 14.2 % (18.3-44.2); Mean Corpuscular HGB Conc 31.7 g/dl (32-36); Mean Corpuscular Hemoglobin 29.4 pg (26-34); Mean Corpuscular Volume 92.9 fl (80-100); Mean Platelet Volume 9.6 fl (7.4-10.4); Monocytes Absolute Auto 1.8 K/mm3 (0.1-0.6); Monocytes Percent Auto 15.8 % (2.6-8.5); Neutrophils Absolute Auto 7.6 K/mm3 (1.3-6.7); Neutrophils Percent Auto 68.6 % (45.5-73.1); Platelet Count Result 335 k/mm3 (150-375); Red Cell Distribution Width 14.4 % (11.5-14.5); White Blood Count 11.1 K/mm3 (4.5-10.0)
[2024-10-04 20:14] VITALS: PULSE 102; RESP 25
[2024-10-04 20:18] LABS: Add Urine Microscopic? YES; Appearance Urine Clear (Clear); Bacteria Urine 4+ /hpf; Bilirubin Urine Negative (Negative); Blood Urine 3+ (Negative); Color Urine Yellow (Yellow); Glucose Urine UA 3+ mg/dL (Negative); Ketones Urine Negative (Negative); Leukocyte Esterase Ur Negative LEU/UL (Negative); Nitrate Urine Positive (Negative); Non Pathogenic Casts 0-2; Protein Urine Negative (Negative); Specific Grav Ur 1.016 (1.001-1.035); Squamous Epithelial Cell Urine None Seen /hpf (Few); Urobilinogen Urine 0.2 mg/dL (<2.0); WBC Urine 0-5 /hpf (0-3)
[2024-10-04 20:19] LABS: Lactic Acid Reflex 1.5 mmol/L (0.7-2.0)
[2024-10-04] MEDS: SODIUM CHLORIDE 0.9% IV 1,000 ML 500 ML IV CONT (20:19)
[2024-10-04 20:20] LABS: INR 2.5; Prothrombin Time 26.9 Seconds (11.1-14.7)
[2024-10-04 20:21] LABS: Alanine Aminotransferase 18 U/L (6-35); Albumin Level 4.1 g/dL (3.5-5.1); Alkaline Phosphatase 73 U/L (38-126); Anion Gap 11 mmol/L (4-12); Aspartate Amino Transferase 27 U/L (14-36); Bilirubin,Total 0.5 mg/dL (0.2-1.3); Blood Urea Nitrogen 22 mg/dL (7-17); Calcium 9.1 mg/dL (8.4-10.2); Carbon Dioxide 22 mmol/L (22-30); Chloride 91 mmol/L (98-107); Estimated CRCL calculation 37 ml/min; Estimated Glomerular Filt Rate 52; Glucose 114 mg/dL (65-110); Lipase 64 U/L (23-300); Magnesium 1.6 mg/dL (1.6-2.3); Partial Thromboplastin Time 59.7 Seconds (22.3-36.8); Potassium 4.8 mmol/L (3.4-5.0); Sodium 124 mmol/L (137-145)
[2024-10-04 20:33] LABS: NT Pro B Type Natriuretic Pept 4440 pg/mL (19.9-100); Troponin I < 0.012 ng/mL (0.000-0.034)
[2024-10-04 20:37] LABS: Procalcitonin 0.1 ng/mL
[2024-10-04 20:47] LABS: Influenza A QL RT-PCR Negative (Negative); Influenza B QL RT-PCR Negative (Negative); RSV RNA, RT-PCR Negative (Negative); SARS-CoV-2 RNA PCR Negative (Negative)
--- NOTE | 2024-10-04 22:21 | PC.NURSE ---
per EDP Elliott, 3 hour troponin/EKG not needed as patient is being discharged.
--- NOTE | 2024-10-04 22:22 | ED_ITS ---
HPI - General Adult General Chief complaint: Nausea/Vomiting/Diarrhea Stated complaint: Weakness, feels dehydrated, Nausea/Vomiting Time Seen by Provider: 10/04/24 19:31 History of Present Illness HPI narrative: The patient is a 79-year-old female who presents emergency department chief complaint of cough and cold symptoms. Patient reports he has been on doxycycline reports she is concerned because she has multiple medications that she takes and worried about interactions the patient states that she has also had increased weakness is increased p.o. intake Related Data Allergies Allergy/AdvReac Type Severity Reaction Status Date / Time Contrast Media Allergy Unknown Unknown Uncoded 10/04/24 19:06 Review of Systems 2 Review of Systems: A 10 system review of systems was completed on the patient and is negative except for what is stated in the HPI. Nursing and ancillary documentation was reviewed. Exam 2 Narrative: GENERAL: Well-appearing, well-nourished, and in no acute distress. HEAD: Normocephalic, atraumatic. EYES: PERRLA and EOMI. ENT: Nares clear, no rhinorrhea or epistaxis. Mucous membranes moist. NECK: Supple. CHEST: Clear to auscultation. No respiratory distress. HEART: Regular rate and rhythm. No murmur heard. Normal peripheral pulses. ABDOMEN: Soft, nontender, nondistended, normal active bowel sounds. EXTREMITIES: Normal range of motion. No edema. SKIN: Warm, dry, no rash. NEURO: No focal deficits. Alert and oriented x3. PSYCH: Normal mood and affect. Course Vital Signs Vital signs: Vital Signs Temperature 36.0 C L 10/04/24 19:07 Pulse Rate 72 10/04/24 19:07 Respiratory Rate 18 10/04/24 19:07 Blood Pressure 151/75 H 10/04/24 19:07 Pulse Oximetry 96 10/04/24 19:07 Oxygen Delivery Room Air 10/04/24 19:07 Temperature 36.0 C L 10/04/24 19:07 Pulse Rate 102 H 10/04/24 20:14 Respiratory Rate 25 H 10/04/24 20:14 Blood Pressure 151/75 H 10/04/24 19:07 Pulse Oximetry 96 10/04/24 19:07 Oxygen Delivery Room Air 10/04/24 19:07 Medical Decision Making [facility] Narrative Medical decision making narrative: Differential diagnosis includes pneumonia, CHF, COPD exacerbation, upper respiratory infection, ACS COVID flu and RSV were negative chest x-ray showed no focal infiltrate no evidence of pulmonary edema troponin was negative BNP was elevated at 4440 Patient received a gentle hydration in the emergency department is feeling much better the patient will be started on Tessalon Perles for the cough the patient will also be given a prescription for steroids the patient should follow-up with her primary care provider and continue her antibiotic Vital Signs Vital Signs: Vital Signs Temperature 36.0 C L 10/04/24 19:07 Pulse Rate 72 10/04/24 19:07 Respiratory Rate 18 10/04/24 19:07 Blood Pressure 151/75 H 10/04/24 19:07 Pulse Oximetry 96 10/04/24 19:07 Oxygen Delivery Room Air 10/04/24 19:07 Temperature 36.0 C L 10/04/24 19:07 Pulse Rate 102 H 10/04/24 20:14 Respiratory Rate 25 H 10/04/24 20:14 Blood Pressure 151/75 H 10/04/24 19:07 Pulse Oximetry 96 10/04/24 19:07 Oxygen Delivery Room Air 10/04/24 19:07 Lab Data 10/04/24 20:04 10/04/24 20:04 Labs: Lab Results 10/04/24 Range/Units 20:04 WBC 11.1 H (4.5-10.0) K/mm3 RBC 3.50 L (4.2-5.4) M/mm3 Hgb 10.3 L (12.0-15.0) g/dL Hct 32.5 L (37.0-47.0) % MCV 92.9 (80-100) fl MCH 29.4 (26-34) pg MCHC 31.7 L (32-36) g/dl RDW 14.4 (11.5-14.5) % Plt Count 335 (150-375) k/mm3 MPV 9.6 (7.4-10.4) fl Immature Gran % (Auto) 0.6 H (0-0.5) % Neut % (Auto) 68.6 (45.5-73.1) % Lymph % (Auto) 14.2 L (18.3-44.2) % [place] % (Auto) 15.8 H (2.6-8.5) % Eos % (Auto) 0.4 (0-4.4) % Baso % (Auto) 0.4 (0.2-1.2) % Lymph # (Auto) 1.58 (0.9-3.2) K/mm3 [place] # (Auto) 1.8 H (0.1-0.6) K/mm3 Eos # (Auto) 0.0 (0-0.3) K/mm3 Baso # (Auto) 0.0 (0.0-0.1) K/mm3 Abs Immat Gran (auto) 0.07 H (0.00-0.031) K/mm3 Absolute Neuts (auto) 7.6 H (1.3-6.7) K/mm3 Absolute Nucleated RBC 0.000 (0.0-0.012) K/mm3 Nucleated RBC % 0.0 (0.0-0.2) % PT 26.9 H (11.1-14.7) Seconds INR 2.5 APTT 59.7 H (22.3-36.8) Seconds Sodium 124 L (137-145) mmol/L Potassium 4.8 (3.4-5.0) mmol/L Chloride 91 L (98-107) mmol/L Carbon Dioxide 22 (22-30) mmol/L Anion Gap 11 (4-12) mmol/L BUN 22 H (7-17) mg/dL Creatinine 1.02 H (0.7-1.0) mg/dL Estim Creat Clear Calc 37 ml/min Estimated GFR 52 L (59 - ) Glucose 114 H (65-110) mg/dL Lactic Acid 1.5 (0.7-2.0) mmol/L Calcium 9.1 (8.4-10.2) mg/dL Magnesium 1.6 (1.6-2.3) mg/dL Total Bilirubin 0.5 (0.2-1.3) mg/dL AST 27 (14-36) U/L ALT 18 (6-35) U/L Alkaline Phosphatase 73 (38-126) U/L Troponin I < 0.012 (0.000-0.034) ng/mL NT-Pro-B Natriuret Pep 4440 H (19.9-100) pg/mL Total Protein 7.0 (6.3-8.2) g/dL Albumin 4.1 (3.5-5.1) g/dL Lipase 64 (23-300) U/L Procalcitonin 0.1 ng/mL Urine Color Yellow (Yellow) Urine Appearance Clear (Clear) Urine pH 5.0 (5.0-9.0) Ur Specific [place] 1.016 (1.001-1.035) Urine Protein Negative (Negative) mg/dL Urine Glucose (UA) 3+ H (Negative) mg/dL Urine Ketones Negative (Negative) mg/dL Ur Blood (Man) 3+ H (Negative) Urine Nitrate Positive H (Negative) Urine Bilirubin Negative (Negative) Urine Urobilinogen 0.2 (<2.0) mg/dL Leukocyte Esterase Rfl Negative (Negative) JAZ/UL Urine RBC 11-20 H (0-2) /hpf Urine WBC 0-5 (0-3) /hpf Ur Squamous Epith Cells None seen (Few) /hpf Urine Bacteria 4+ H /hpf Urine Casts 0-2 Influenza A (RT-PCR) Negative (Negative) Influenza B (RT-PCR) Negative (Negative) RSV (RT-PCR) Negative (Negative) SARS-CoV-2 RNA (RT-PCR) Negative (Negative) Discharge Plan Discharge Clinical Impression: Acute upper respiratory infection Patient Disposition: Home, Self-Care Condition: Stable Instructions: Antibiotic Form, Upper Respiratory Infection (ED) Patient Language: Green[place]ic Prescriptions: New prednisone 20 mg tablet 40 mg PO DAILY 5 Days Qty: 10 0RF benzonatate 200 mg capsule 200 mg PO TID PRN (Reason: cough) Qty: 21 0RF No Action cephalexin 500 mg capsule 500 mg PO Q12H 7 Days Qty: 14 0RF tramadol 50 mg tablet 50 mg PO HS Qty: 10 0RF Follow-up/Referrals: Alexy,Deandre Lowery MD [Primary Care Provider] - Time of Disposition: 22:25
[2024-10-04 22:27] VITALS: BP 108/56; PULSE 77; RESP 19; O2SAT 97
[2024-10-04 22:38] VITALS: BP 123/82; PULSE 79; RESP 18; TEMP 36.8; O2SAT 99
== END 2024-10-04 22:40 | disposition home or self-care (01) ==
PROVIDERS: Emergency Provider Emergency Medicine; PCP Internal Medicine
DX: J06.9 Acute upper respiratory infection, unspecified (principal); Z20.822 Contact with and (suspected) exposure to COVID-19; R82.998 Other abnormal findings in urine
CPT/HCPCS: 36415; 71045; 80053; 81001; 83605; 83690; 83735; 83880; 84145; 84484; 85025; 85610; 85730; 87086; 87186; 87637; 93005; 94640; 96360; 96361; 99284; J7030